=== PATIENT | female | born 1995 | race Caucasian/White ===

== ENCOUNTER 2023-02-25 09:56 | Outpatient (CLI) | payer OTHER ==
[~2023-02-25 09:56] MED LIST: PRENATAL TABLE1 EAC4 PO
== END 2023-02-25 11:40 | disposition home or self-care (01) ==
LOC: PRENATAL 09:56
PROVIDERS: ATTEND Obstetrics & Gynecology Maternal & Fetal Medicine
DX: O36.80X0 Pregnancy with inconclusive fetal viability, not applicable or unspecified (principal); O34.219 Maternal care for unspecified type scar from previous cesarean delivery; Z3A.12 12 weeks gestation of pregnancy

== ENCOUNTER 2023-04-22 12:30 | Outpatient (CLI) | payer OTHER | END 2023-04-22 13:45 | disposition home or self-care (01) | LOC: PRENATAL 12:30 | PROVIDERS: ATTEND Obstetrics & Gynecology Maternal & Fetal Medicine | DX: O35.9XX0 Maternal care for (suspected) fetal abnormality and damage, unspecified, not applicable or unspecified (principal); O35.3XX0 Maternal care for (suspected) damage to fetus from viral disease in mother, not applicable or unspecified; O34.219 Maternal care for unspecified type scar from previous cesarean delivery; Z3A.20 20 weeks gestation of pregnancy ==

== ENCOUNTER 2023-07-16 14:08 | Outpatient (CLI) | payer OTHER | END 2023-07-16 16:32 | disposition home or self-care (01) | LOC: PRENATAL 14:08 | PROVIDERS: ATTEND Obstetrics & Gynecology Maternal & Fetal Medicine | DX: O26.849 Uterine size-date discrepancy, unspecified trimester (principal); O36.8199 Decreased fetal movements, unspecified trimester, other fetus; O34.219 Maternal care for unspecified type scar from previous cesarean delivery; Z3A.32 32 weeks gestation of pregnancy ==

== ENCOUNTER 2023-09-02 09:45 | Inpatient (IN) | payer OTHER ==
[~2023-09-02] VITALS: Ht 154.9 cm; Wt 3.2 kg
[2023-09-02 12:09] LABS: HEMATOCRIT 27.5 % (36.0-45.00); HEMOGLOBIN 9.4 g/dL (12.0-15.00); MEAN CELL VOLUME 78.3 fL (80.00-100.00); MEAN CORPUSCULAR HEMOGLOBIN 26.7 pg (27.00-32.0); MEAN CORPUSCULAR HGB CONC 34.1 g/dl (32.0-36.0); PLATELET COUNT 144 K/uL (150-450); RED BLOOD COUNT 3.51 M/uL (4.00-6.00); RED CELL DISTRIBUTION WIDTH 18.4 % (11.5-14.5)
[2023-09-02 12:32] LABS: INR 0.98; PARTIAL THROMBOPLASTIN TIME 25.3 SECONDS (22.0-34.0); PROTHROMBIN TIME 10.3 SECONDS (9.0-11.5)
[2023-09-02 12:36] LABS: ALBUMIN 2.7 gm/dL (3.4-5.0); BILIRUBIN TOTAL 0.6 mg/dL (0.3-1.2); CALCIUM 8.9 mg/dL (8.5-10.1); CREATININE SERUM 0.41 mg/dL (0.55-1.02); GFR 182.15; GLOBULINA 3.3 G/DL (2.4-3.5); POTASSIUM 4.07 mEq/L (3.5-5.1)
[2023-09-02 13:05] LABS: PH,URINE 7.5 (5.0-8.0); URINE APPEARANCE Cloudy; URINE BILIRRUBIN Negative (NEGATIVE); URINE BLOOD Negative; URINE COLOR Yellow; URINE GLUCOSE Negative (NEGATIVE); URINE LEUKOCYTE Negative; URINE NITRATE Negative; URINE PROTEIN Negative (NEGATIVE)
[2023-09-02 13:08] LABS: URINE BACTERIA 770.9 uL (0.0-1933); URINE EPITHELIAL CELLS 33.9 uL (0.0-38.8); URINE WBC 16.3 uL (0.0-23.2)
[2023-09-02 13:21] LABS: URINE RBC 1.8 uL (0.0-20.8)
[2023-09-08 06:15] LABS: MEAN CELL VOLUME 79.5 fL (80.00-100.00); MEAN CORPUSCULAR HGB CONC 33.3 g/dl (32.0-36.0); RED BLOOD COUNT 2.96 M/uL (4.00-6.00); RED CELL DISTRIBUTION WIDTH 18.6 % (11.5-14.5)
[2023-09-08 06:27] LABS: HEMATOCRIT 23.5 % (36.0-45.00); MEAN CORPUSCULAR HEMOGLOBIN 26.3 pg (27.00-32.0)
[2023-09-08 06:28] LABS: HEMOGLOBIN 7.8 g/dL (12.0-15.00); PLATELET COUNT 116 K/uL (150-450)
[2023-09-09 03:54] LABS: HEMATOCRIT 27.6 % (36.0-45.00); MEAN CORPUSCULAR HGB CONC 33.4 g/dl (32.0-36.0); PLATELET COUNT 130 K/uL (150-450); RED BLOOD COUNT 3.45 M/uL (4.00-6.00); RED CELL DISTRIBUTION WIDTH 18.2 % (11.5-14.5)
[2023-09-09 03:55] LABS: HEMOGLOBIN 9.2 g/dL (12.0-15.00); MEAN CORPUSCULAR HEMOGLOBIN 26.6 pg (27.00-32.0)
== END 2023-09-11 17:59 | disposition home or self-care (01) | DRG 784 ==
LOC: OB/GYN 09-07 07:00 → O/R 09-07 15:48 → OB/GYN 09-07 15:48
PROVIDERS: ADMIT Obstetrics & Gynecology; ATTEND Obstetrics & Gynecology
PROC: 0UB70ZZ Excision of Bilateral Fallopian Tubes, Open Approach (ICD-10-PCS; 2023-09-07)
PROC: 4A1HXCZ Monitoring of Products of Conception, Cardiac Rate, External Approach (ICD-10-PCS; 2023-09-07)
PROC: 10D00Z1 Extraction of Products of Conception, Low, Open Approach (ICD-10-PCS; principal; 2023-09-07 07:00)
PROC: 30233N1 Transfusion of Nonautologous Red Blood Cells into Peripheral Vein, Percutaneous Approach (ICD-10-PCS; 2023-09-08)
DX: O34.211 Maternal care for low transverse scar from previous cesarean delivery (principal); D62 Acute posthemorrhagic anemia; O99.02 Anemia complicating childbirth; Z30.2 Encounter for sterilization; Z20.822 Contact with and (suspected) exposure to COVID-19; Z3A.39 39 weeks gestation of pregnancy; Z37.0 Single live birth